=== PATIENT | male | born 1960 | race Caucasian/White ===

== ENCOUNTER → 2018-06-20 | Day surgery (SDC) | payer BC, OTHER ==
[2018-06-18 15:37] VITALS: BMI 26.8
[~2018-06-20] MED LIST: LACTATED RINGERS 1,000 ML IV ONE; LACTATED RINGERS 1,000 ML IV SCH; LIDOCAINE 1% 20 ML VIAL (10MG/ML) FOR IV START INTRADERMA PRN; LIDOCAINE 1% INJ 10MG/ML (20 ML MDV) ONE; PROPOFOL 10 MG/ML 20 ML VIAL IV ONE
[2018-06-20 09:15] VITALS: RESP 18; TEMP 98
--- NOTE | 2018-06-20 10:18 | P.PCN ---
Date of Procedure: 06/20/18 Procedure(s) Performed: BRIEF HISTORY: Patient is a 58-year-old pleasant, white male scheduled for an elective colonoscopy as a part of evaluation of prior history of colon polyps. Last coloscopy was 7 years ago. PROCEDURE PERFORMED: Colonoscopy with snare polypectomy. PREOPERATIVE DIAGNOSIS: History of colon polyps. IV sedation per Anesthesia. PROCEDURE: After informed consent was obtained, the patient, was brought into the endoscopy unit. IV sedation was administered by Anesthesia under continuous monitoring. Digital rectal examination was normal. Initially the Olympus CF- 160 flexible video colonoscope was then inserted in the rectum, gradually advanced into the cecum without any difficulty. Careful examination was performed as the scope was gradually being withdrawn. Ileocecal valve and the appendiceal orifice were visualized and appeared normal. Prep was excellent. Mucosa of the cecum appeared normal. In the ascending colon there was a 1 segment of broad-based polyp removed by snare polypectomy. Rest of the, ascending colon, transverse colon, descending colon, sigmoid colon, and rectum appeared normal. Oxygen rectum there was a 5 mm sessile polyp removed by snare polypectomy. Retroflexion was performed in the rectum and no lesions were seen. The patient tolerated the procedure well. IMPRESSION: 1 cm ascending colon polyp status post polypectomy 5 mm proximal rectal polyp status post polypectomy RECOMMENDATIONS: Findings of this examination were discussed with the patient as his family. He was advised to follow with the biopsy results. If the biopsy shows adenoma, he can have a repeat colonoscopy in 3-5 years.
[2018-06-20 10:42] VITALS: BP 132/88; PULSE 60
== END | disposition home or self-care (01) ==
LOC: ORWHC2ENDO 08:43
PROVIDERS: ATTEND Internal Medicine Gastroenterology
DX: Z12.11 Encounter for screening for malignant neoplasm of colon (principal); D12.2 Benign neoplasm of ascending colon; K62.1 Rectal polyp; Z86.010 Personal history of colon polyps; Z72.0 Tobacco use
CPT/HCPCS: 88305; 45385; J2001; J2704